=== PATIENT | female | born 1940 | race Caucasian/White ===

== ENCOUNTER 2016-05-11 23:43 | Observation (INO) | payer OTHER ==
[~2016-05-11] VITALS: Ht 152.4 cm; Wt 92.9 kg
[~2016-05-11 23:43] MED LIST: ANTIVERT25 MG PO; BENTYL20 MG PO; CEFDINIR300 MG PO; COLACE100 MG PO; DIABETIC MED; GLIPIZIDE5 MG PO; GLUCOPHAGE500 MG PO; HYCODAN SYRUP480 ML PO; HYDROCHLOROTH12.5 M3 PO; KEFLEX500 MG PO; KENALOG,ARISTOC80 GM TP; LANTUS 3 M100 UNITS1 SC; METFORMIN HCL500 M4 PO; MICROZIDE12.5 M1 PO; NORCO 5/3251 TABLET PO; PREDNISONE10 MG PO; PYRIDIUM100 MG PO; TESSALON200 MG PO; TRAMADOL HCL50 MG PO; VENTOLIN HFA18 GM IH; VICODIN,LORT1 TABLET PO; ZOFRAN4 MG PO
[2016-05-12 00:27] LABS: HEMATOCRIT 37.9 % (36.0-46.0); MCH 29.1 PG (29.0-34.0); MCHC 34.3 G/DL (30.0-36.0); MEAN PLAT.VOLUME 9.1 uM^3 (9.5-12.4); PLATELET COUNT 261 K/uL (156-360); RBC DIS.WIDTH-CV 13.2 % (11.8-14.6); RBC DIS.WIDTH-SD 40.3 % (39-53); RED BLOOD COUNT 4.46 M/uL (3.80-5.20); WHITE BLOOD COUNT 9.1 K/uL (4.1-10.2)
[2016-05-12 00:38] LABS: CHLORIDE 103 mEq/L (99-109); POTASSIUM 3.2 mEq/L (3.7-5.4); SODIUM 138 mEq/L (136-147)
[2016-05-12 00:39] LABS: GLUCOSE 148 mg/dL (70-99)
[2016-05-12 00:40] LABS: D-DIMER ELISA 0.54 mg/L FEU (< 0.57); PROTHROMBIN TIME 10.6 (9.2-11.2); PTT 24.7 (25-32)
[2016-05-12 00:41] LABS: ANION GAP 10 MEQ/L (2-14)
[2016-05-12 00:43] LABS: GFR ESTIMATE (CALCULATED) > 59 mL/min/
[2016-05-12 00:44] LABS: UREA NITROGEN (BUN) 9 mg/dL (9-23)
[2016-05-12 00:48] LABS: TROP-I INTERPRETATION NEGATIVE; TROPONIN-I < 0.01 ng/mL (0.0-0.30)
[2016-05-12] MEDS ORDERED: HYDROCHLOROTHIA25 MG PO (02:00)
[2016-05-12] MEDS ORDERED: LANTUS 3 M100 UNITS1 SC (02:01)
[2016-05-12] MEDS ORDERED: MYRBETRIQ50 MG PO (02:01)
[2016-05-12] MEDS ORDERED: LISINOPRIL10 MG PO (02:01)
[2016-05-12] MEDS ORDERED: METFORMIN HCL500 MG PO (02:01)
[2016-05-12 03:17] VITALS: BP 144/68
[2016-05-12 03:41] LABS: POINT-OF-CARE METER ID UU13113700
[2016-05-12 08:00] LABS: POINT-OF-CARE METER ID UU13113700
[2016-05-12 08:07] LABS: HEMATOCRIT 38.7 % (36.0-46.0); MCH 28.2 PG (29.0-34.0); MCHC 32.8 G/DL (30.0-36.0); MEAN PLAT.VOLUME 9.6 uM^3 (9.5-12.4); PLATELET COUNT 240 K/uL (156-360); RBC DIS.WIDTH-CV 13.3 % (11.8-14.6); RBC DIS.WIDTH-SD 41.5 % (39-53); WHITE BLOOD COUNT 7.8 K/uL (4.1-10.2)
[2016-05-12 08:23] LABS: ALKALINE PHOSPHATASE 63 IU/L (3-129); ANION GAP 5 MEQ/L (2-14); CHLORIDE 104 MEQ/L (99-109); GFR ESTIMATE (CALCULATED) > 59 mL/min/; GLUCOSE 160 mg/dL (70-99); SAMPLE HEMOLYSIS CHECK 0; SAMPLE ICTERIC CHECK 0; SAMPLE LIPEMIA CHECK 0; SODIUM 138 MEQ/L (136-147); TOTAL BILIRUBIN 0.3 MG/DL (0.0-1.0); TROP-I INTERPRETATION NEGATIVE; TROPONIN-I < 0.01 ng/mL (0.0-0.30); UREA NITROGEN (BUN) 9 mg/dL (9-23)
[2016-05-12 08:26] LABS: POTASSIUM 4.1 MEQ/L (3.7-5.4)
[2016-05-12 09:09] VITALS: BP 138/69
[2016-05-12 11:47] VITALS: BP 156/74
[2016-05-12 13:55] LABS: TROP-I INTERPRETATION NEGATIVE; TROPONIN-I < 0.01 ng/mL (0.0-0.30)
[2016-05-12] MEDS ORDERED: NITROSTAT0.4 MG SL (14:07)
[2016-05-12] MEDS ORDERED: ASPIR-LOW81 MG PO (14:07)
[2016-05-12 15:25] VITALS: BP 148/72
== END 2016-05-12 18:00 | disposition home or self-care (01) ==
LOC: EME 23:43 → EDOF 05-12 02:40 → 5WEST 05-12 03:18
PROVIDERS: Emergency Medicine; Hospitalist; Internal Medicine
DX: R07.89 Other chest pain (principal); E87.6 Hypokalemia; J44.9 Chronic obstructive pulmonary disease, unspecified; R00.2 Palpitations; M62.81 Muscle weakness (generalized); E11.9 Type 2 diabetes mellitus without complications; Z79.4 Long term (current) use of insulin; K21.9 Gastro-esophageal reflux disease without esophagitis; I10 Essential (primary) hypertension; E66.01 Morbid (severe) obesity due to excess calories; Z86.718 Personal history of other venous thrombosis and embolism; Z87.891 Personal history of nicotine dependence
CPT/HCPCS: 71020; 80048; 80053; 82948; 84484; 85027; 85379; 85610; 85730; 93005; 93306; 99202; 99281; 99285; G0378; J1644; J1815; J2270; J7030

== ENCOUNTER 2016-06-28 23:25 | Emergency (ER) | payer OTHER ==
[~2016-06-28] VITALS: Ht 152.4 cm; Wt 97.6 kg
[~2016-06-28 23:25] MED LIST changes: +ASPIR-LOW81 MG PO; +HYDROCHLOROTHIA25 MG PO; +LISINOPRIL10 MG PO; +METFORMIN HCL500 MG PO; +MYRBETRIQ50 MG PO; +NITROSTAT0.4 MG SL
[2016-06-29] MEDS ORDERED: ULTRAM50 MG PO (00:04)
[2016-06-29 00:26] VITALS: BP 165/84
== END 2016-06-29 00:26 | disposition home or self-care (01) ==
LOC: EME → EDBD 23:25 → EME 23:25
DX: M25.552 Pain in left hip (principal); E11.9 Type 2 diabetes mellitus without complications; I10 Essential (primary) hypertension; K21.9 Gastro-esophageal reflux disease without esophagitis; Z85.828 Personal history of other malignant neoplasm of skin
CPT/HCPCS: 99281; 99283

== ENCOUNTER 2016-08-08 22:38 | Emergency (ER) | payer OTHER ==
[~2016-08-08] VITALS: Ht 152.4 cm; Wt 90.7 kg
[~2016-08-08 22:38] MED LIST changes: +ULTRAM50 MG PO
[2016-08-08 23:40] LABS: HEMATOCRIT 39.6 % (36.0-46.0); MCH 28.4 PG (29.0-34.0); MCHC 32.8 G/DL (30.0-36.0); MCV 86.5 FL (83-99); MEAN PLAT.VOLUME 9.1 uM^3 (9.5-12.4); PLATELET COUNT 247 K/uL (156-360); RBC DIS.WIDTH-CV 13.2 % (11.8-14.6); RBC DIS.WIDTH-SD 41.2 % (39-53); RED BLOOD COUNT 4.58 M/uL (3.80-5.20); WHITE BLOOD COUNT 10.3 K/uL (4.1-10.2)
[2016-08-08 23:48] LABS: ADD MIUA? YES; BILIRUBIN NEGATIVE; BLOOD MODERATE; COLOR YELLOW ((YELLOW)); GLUCOSE (STRIP) >=500; KETONES NEGATIVE; LEUKOCYTES LARGE; NITRITE NEGATIVE; PROTEIN (STRIP) NEGATIVE; SPECIFIC GRAVITY 1.007 (1.000-1.030); UROBILINOGEN 0.2 MG/DL (0.2-1.0)
[2016-08-08 23:53] LABS: CHLORIDE 102 mEq/L (99-109); POTASSIUM 3.6 mEq/L (3.7-5.4); SODIUM 136 mEq/L (136-147)
[2016-08-08 23:55] LABS: GLUCOSE 218 mg/dL (70-99)
[2016-08-08 23:56] LABS: ANION GAP 10 MEQ/L (2-14)
[2016-08-08 23:59] LABS: GFR ESTIMATE (CALCULATED) > 59 mL/min/
[2016-08-09] LABS: UREA NITROGEN (BUN) 18 mg/dL (9-23)
[2016-08-09] MEDS ORDERED: KEFLEX500 MG PO (00:26)
[2016-08-09] MEDS ORDERED: PYRIDIUM100 MG PO (00:26)
[2016-08-09 00:28] LABS: EPITHELIAL CELLS RARE /HPF; RED BLOOD CELLS 15-20 /HPF (0-5); WHITE BLOOD CELLS TNTC /HPF (0-5)
[2016-08-09 00:29] LABS: BACTERIA 2+ /HPF; CASTS NONE SEEN /LPF; CRYSTALS NONE SEEN; MUCUS NONE SEEN /LPF; UCUL ADDED? YES
[2016-08-09 01:22] VITALS: BP 158/88
== END 2016-08-09 01:22 | disposition home or self-care (01) ==
LOC: EME 22:38
PROVIDERS: Emergency Medicine
DX: N30.01 Acute cystitis with hematuria (principal); M25.552 Pain in left hip; G89.29 Other chronic pain; I10 Essential (primary) hypertension; E11.9 Type 2 diabetes mellitus without complications; Z79.4 Long term (current) use of insulin; Z87.891 Personal history of nicotine dependence
CPT/HCPCS: 73502; 74176; 80048; 81003; 85027; 87077; 87086; 87186; 99281; 99284

== ENCOUNTER 2016-09-25 20:31 | Observation (INO) | payer OTHER ==
[~2016-09-25] VITALS: Ht 152.4 cm; Wt 89.0 kg
[2016-09-25 22:02] LABS: EOSINOPHIL (%) 2.8 % (0-5); EOSINOPHIL COUNT 0.3 K/uL (0-0.3); IMMATURE GRANULOCYTE (%) 0.4 % (0.0-0.7); IMMATURE GRANULOCYTE COUNT 0.1 K/uL; INSTRUMENT ABS NEUTROPHIL CT 7.8 K/uL; LYMPHOCYTE COUNT 2.3 K/uL (1.0-2.8); MCH 29.1 PG (29.0-34.0); MCHC 33.6 G/DL (30.0-36.0); MCV 86.7 FL (83-99); MEAN PLAT.VOLUME 9.6 uM^3 (9.5-12.4); MONOCYTE (%) 6.8 % (3-12); MONOCYTE COUNT 0.8 K/uL (0-0.8); NEUTROPHIL COUNT 7.8 K/uL (1.8-6.4); PLATELET COUNT 246 K/uL (156-360); RBC DIS.WIDTH-CV 13.1 % (11.8-14.6); RBC DIS.WIDTH-SD 41.1 % (39-53); WHITE BLOOD COUNT 11.2 K/uL (4.1-10.2)
[2016-09-25 22:13] LABS: CHLORIDE 107 mEq/L (99-109); POTASSIUM 3.6 mEq/L (3.7-5.4); SODIUM 142 mEq/L (136-147)
[2016-09-25 22:14] LABS: GLUCOSE 200 mg/dL (70-99)
[2016-09-25 22:16] LABS: ANION GAP 13 MEQ/L (2-14)
[2016-09-25 22:18] LABS: GFR ESTIMATE (CALCULATED) > 59 mL/min/
[2016-09-25 22:19] LABS: UREA NITROGEN (BUN) 19 mg/dL (9-23)
[2016-09-25 22:23] LABS: TROP-I INTERPRETATION NEGATIVE; TROPONIN-I < 0.01 ng/mL (0.0-0.30)
[2016-09-25] MEDS ORDERED: LO-DOSE ASPIRIN81 M2 PO (23:22)
[2016-09-26 01:10] VITALS: BP 175/73
[2016-09-26 01:55] VITALS: BP 152/82
[2016-09-26 07:16] LABS: ADD MIUA? YES; BILIRUBIN NEGATIVE; BLOOD NEGATIVE; COLOR YELLOW ((YELLOW)); GLUCOSE (STRIP) 150; KETONES NEGATIVE; LEUKOCYTES LARGE; NITRITE POSITIVE; PROTEIN (STRIP) NEGATIVE; SPECIFIC GRAVITY 1.028 (1.000-1.030); UROBILINOGEN 0.2 MG/DL (0.2-1.0)
[2016-09-26 07:20] LABS: HDL CHOLESTEROL 42 MG/DL (Desirable>=50); LDL CHOLESTEROL 49 mg/dL (Desirable<100); NON-HDL CHOLESTEROL 77 mg/dL (Desirable<160); TOTAL CHOLESTEROL 119 mg/dL (Desirable<200); TRIGLYCERIDES 138 MG/DL (Normal: <150)
[2016-09-26 07:27] LABS: TROP-I INTERPRETATION NEGATIVE; TROPONIN-I < 0.01 ng/mL (0.0-0.30)
[2016-09-26 07:33] LABS: BACTERIA 3+ /HPF; EPITHELIAL CELLS 1+ /HPF; MUCUS 3+ /LPF; RED BLOOD CELLS 15-20 /HPF (0-5); UCUL ADDED? YES; WHITE BLOOD CELLS TNTC /HPF (0-5)
[2016-09-26 08:06] LABS: Estimated Average Glucose 174 mg/dL (70-123); HEMOGLOBIN A1c (GLYCOHEMOGLOB) 7.7 % HGB (Below 5.7)
[2016-09-26 08:07] VITALS: BP 124/67
[2016-09-26 10:54] LABS: POINT-OF-CARE METER ID UU13113831
[2016-09-26 11:45] VITALS: BP 144/65
[2016-09-26 12:34] LABS: POINT-OF-CARE METER ID UU14162513
== END 2016-09-26 14:03 | disposition home or self-care (01) ==
LOC: EME → EDBD 20:31 → EDOF 23:01 → 5WEST 09-26 00:57
PROVIDERS: Emergency Medicine; Hospitalist; Student in an Organized Health Care Education/Training Program
DX: M79.602 Pain in left arm (principal); I10 Essential (primary) hypertension; E11.65 Type 2 diabetes mellitus with hyperglycemia; R20.0 Anesthesia of skin; Z91.81 History of falling; K21.9 Gastro-esophageal reflux disease without esophagitis; J44.9 Chronic obstructive pulmonary disease, unspecified; Z85.038 Personal history of other malignant neoplasm of large intestine; Z90.49 Acquired absence of other specified parts of digestive tract; Z87.891 Personal history of nicotine dependence; Z79.82 Long term (current) use of aspirin; Z79.4 Long term (current) use of insulin
CPT/HCPCS: 70450; 70551; 71010; 73030; 73130; 80048; 80061; 81003; 82948; 83036; 84484; 85025; 87077; 87086; 87186; 93005; 93880; 99281; 99285; G0378; J1644; J1815; J2270

== ENCOUNTER 2016-12-02 14:26 | Inpatient (IN) | payer OTHER ==
[~2016-12-02] VITALS: Ht 152.4 cm; Wt 86.2 kg
[~2016-12-02 14:26] MED LIST changes: +LO-DOSE ASPIRIN81 M2 PO
[2016-12-02 15:04] LABS: EOSINOPHIL (%) 0.4 % (0-5); IMMATURE GRANULOCYTE (%) 0.5 % (0.0-0.7); IMMATURE GRANULOCYTE COUNT 0.1 K/uL; INSTRUMENT ABS NEUTROPHIL CT 9.4 K/uL; LYMPHOCYTE COUNT 1.2 K/uL (1.0-2.8); MCH 29.1 PG (29.0-34.0); MCHC 33.9 G/DL (30.0-36.0); MCV 85.8 FL (83-99); MEAN PLAT.VOLUME 9.4 uM^3 (9.5-12.4); MONOCYTE (%) 3.7 % (3-12); MONOCYTE COUNT 0.4 K/uL (0-0.8); NEUTROPHIL (%) 84.4 % (45-76); NEUTROPHIL COUNT 9.4 K/uL (1.8-6.4); PLATELET COUNT 252 K/uL (156-360); RBC DIS.WIDTH-CV 12.9 % (11.8-14.6); RBC DIS.WIDTH-SD 40.3 % (39-53); RED BLOOD COUNT 4.78 M/uL (3.80-5.20); WHITE BLOOD COUNT 11.2 K/uL (4.1-10.2)
[2016-12-02 15:12] LABS: CHLORIDE 101 mEq/L (99-109); POTASSIUM 3.5 mEq/L (3.7-5.4); SODIUM 139 mEq/L (136-147)
[2016-12-02 15:14] LABS: GLUCOSE 229 mg/dL (70-99)
[2016-12-02 15:15] LABS: ANION GAP 15 MEQ/L (2-14)
[2016-12-02 15:16] LABS: TOTAL BILIRUBIN 0.4 mg/dL (0.0-1.0)
[2016-12-02 15:17] LABS: ALKALINE PHOSPHATASE 59 IU/L (3-129)
[2016-12-02 15:18] LABS: GFR ESTIMATE (CALCULATED) > 59 mL/min/
[2016-12-02 15:19] LABS: UREA NITROGEN (BUN) 20 mg/dL (9-23)
[2016-12-02 15:25] LABS: TROP-I INTERPRETATION NEGATIVE; TROPONIN-I < 0.01 ng/mL (0.0-0.30)
[2016-12-02 15:31] LABS: POINT-OF-CARE METER ID UU13113702
[2016-12-02] MEDS ORDERED: BACLOFEN20 MG PO (16:36)
[2016-12-02] MEDS ORDERED: GABAPENTIN100 MG PO (16:36)
[2016-12-02 16:59] LABS: ADD MIUA? YES; BILIRUBIN NEGATIVE; BLOOD NEGATIVE; COLOR YELLOW ((YELLOW)); GLUCOSE (STRIP) >=500; KETONES NEGATIVE; LEUKOCYTES SMALL; NITRITE NEGATIVE; PROTEIN (STRIP) 100; UROBILINOGEN 0.2 MG/DL (0.2-1.0)
[2016-12-02 17:08] LABS: BACTERIA RARE /HPF; BUDDING YEAST 1+; EPITHELIAL CELLS RARE /HPF; MUCUS TRACE /LPF; RED BLOOD CELLS 0-5 /HPF (0-5); UCUL ADDED? YES; WHITE BLOOD CELLS 20-30 /HPF (0-5)
[2016-12-02 17:11] LABS: AMPHETAMINE NEGATIVE (500 ng/mL); BARBITURATES NEGATIVE (200 ng/mL); BENZODIAZEPINES NEGATIVE (150 ng/mL); COCAINE NEGATIVE (150 ng/mL); INTERNAL CONTROLS VALID? YES; METHADONE NEGATIVE (200 ng/mL); METHAMPHETAMINE NEGATIVE (500 ng/mL); OPIATES (MORPHINE) NEGATIVE (100 ng/mL); OXYCODONE NEGATIVE (100 ng/mL); PHENCYCLIDINE NEGATIVE (25 ng/mL); PROPOXYPHENE NEGATIVE (300 ng/mL); THC CANNABINOIDS NEGATIVE (50 ng/mL); TRICYCLIC ANTIDEPRESSANTS NEGATIVE (300 ng/mL)
[2016-12-02 18:43] LABS: Estimated Average Glucose 183 mg/dL (70-123)
[2016-12-02 18:53] LABS: HDL CHOLESTEROL 52 MG/DL (Desirable>=50); LDL CHOLESTEROL 97 mg/dL (Desirable<100); NON-HDL CHOLESTEROL 120 mg/dL (Desirable<160); TOTAL CHOLESTEROL 172 mg/dL (Desirable<200); TRIGLYCERIDES 115 MG/DL (Normal: <150)
[2016-12-02 20:38] VITALS: BP 159/72
[2016-12-02 21:01] LABS: POINT-OF-CARE METER ID UU13113700
[2016-12-02 23:52] VITALS: BP 134/63
[2016-12-03 04:00] VITALS: BP 156/72
[2016-12-03 06:23] LABS: HEMATOCRIT 40.1 % (36.0-46.0); MCH 28.5 PG (29.0-34.0); MCHC 32.2 G/DL (30.0-36.0); MCV 88.5 FL (83-99); MEAN PLAT.VOLUME 9.4 uM^3 (9.5-12.4); PLATELET COUNT 264 K/uL (156-360); RBC DIS.WIDTH-CV 13.2 % (11.8-14.6); RBC DIS.WIDTH-SD 42.6 % (39-53); RED BLOOD COUNT 4.53 M/uL (3.80-5.20); WHITE BLOOD COUNT 12.5 K/uL (4.1-10.2)
[2016-12-03 07:52] LABS: POINT-OF-CARE METER ID UU13113700
[2016-12-03 11:09] VITALS: BP 140/60
[2016-12-03 12:14] LABS: POINT-OF-CARE METER ID UU13113700
[2016-12-03 15:41] VITALS: BP 138/74
[2016-12-03 17:48] LABS: POINT-OF-CARE METER ID UU13113700
[2016-12-03 20:00] VITALS: BP 106/77
[2016-12-03 21:28] LABS: POINT-OF-CARE METER ID UU13113831
[2016-12-03 23:08] VITALS: BP 132/62
[2016-12-04 03:26] VITALS: BP 125/61
[2016-12-04 06:31] LABS: POINT-OF-CARE METER ID UU14162513
[2016-12-04 08:20] VITALS: BP 140/65
[2016-12-04 09:14] LABS: HEMATOCRIT 41.7 % (36.0-46.0); MCH 28.7 PG (29.0-34.0); MCHC 31.9 G/DL (30.0-36.0); MCV 89.9 FL (83-99); MEAN PLAT.VOLUME 9.3 uM^3 (9.5-12.4); PLATELET COUNT 257 K/uL (156-360); RBC DIS.WIDTH-CV 13.3 % (11.8-14.6); RBC DIS.WIDTH-SD 44.1 % (39-53); RED BLOOD COUNT 4.64 M/uL (3.80-5.20); WHITE BLOOD COUNT 9.2 K/uL (4.1-10.2)
[2016-12-04 09:32] LABS: ANION GAP 7 MEQ/L (2-14); CHLORIDE 107 MEQ/L (99-109); POTASSIUM 4.2 MEQ/L (3.7-5.4); SAMPLE HEMOLYSIS CHECK 0; SAMPLE ICTERIC CHECK 0; SAMPLE LIPEMIA CHECK 0; SODIUM 143 MEQ/L (136-147)
[2016-12-04 09:38] LABS: GFR ESTIMATE (CALCULATED) > 59 mL/min/; UREA NITROGEN (BUN) 14 mg/dL (9-23)
[2016-12-04 09:39] LABS: GLUCOSE 117 mg/dL (70-99)
[2016-12-04 11:07] VITALS: BP 177/80
[2016-12-04 12:04] LABS: POINT-OF-CARE METER ID UU14162513
[2016-12-04 15:13] VITALS: BP 157/78
[2016-12-04 17:26] LABS: POINT-OF-CARE METER ID UU14162513
[2016-12-04 19:00] VITALS: BP 136/82
[2016-12-05 00:05] VITALS: BP 132/58
[2016-12-05 04:30] VITALS: BP 129/58
[2016-12-05 07:19] VITALS: BP 140/68
[2016-12-05] MEDS ORDERED: CEFTIN500 MG PO (09:22)
== END 2016-12-05 10:56 | disposition home or self-care (01) | DRG 689 ==
LOC: EME 14:26 → ENRESERV 17:43 → 5WEST 17:50 → EDOF 17:50 → ENRESERV 18:32 → 5WEST 20:20 → ENRESERV 12-03 08:54 → CANRESERV 12-03 08:54 → 5WEST 12-05 10:56
PROVIDERS: Emergency Medicine; Hospitalist; Nurse Practitioner Adult Health
DX: N39.0 Urinary tract infection, site not specified (principal); G93.40 Encephalopathy, unspecified; I08.1 Rheumatic disorders of both mitral and tricuspid valves; E11.65 Type 2 diabetes mellitus with hyperglycemia; K21.9 Gastro-esophageal reflux disease without esophagitis; J44.9 Chronic obstructive pulmonary disease, unspecified; I10 Essential (primary) hypertension; M19.90 Unspecified osteoarthritis, unspecified site; G89.29 Other chronic pain; Z87.891 Personal history of nicotine dependence; R26.81 Unsteadiness on feet; K58.9 Irritable bowel syndrome, unspecified; Z90.49 Acquired absence of other specified parts of digestive tract; Z86.73 Personal history of transient ischemic attack (TIA), and cerebral infarction without residual deficits; Z87.440 Personal history of urinary (tract) infections; Z79.84 Long term (current) use of oral hypoglycemic drugs
CPT/HCPCS: 70450; 70551; 74177; 80048; 80053; 80061; 81003; 82948; 83036; 84484; 85025; 85027; 87077; 87086; 87186; 90686; 93005; 93306; 99202; 99281; 99285; G0378; J0696; J2060; J2405; J3480; J7030; J7040; J7050

== ENCOUNTER 2017-07-01 22:31 | Inpatient (IN) | payer OTHER ==
[~2017-07-01] VITALS: Ht 152.4 cm; Wt 87.6 kg
[~2017-07-01 22:31] MED LIST changes: +BACLOFEN20 MG PO; +CEFTIN500 MG PO; +GABAPENTIN100 MG PO
[2017-07-01 23:32] LABS: HEMATOCRIT 40.8 % (36.0-46.0); MCH 29.8 PG (29.0-34.0); MCHC 34.3 G/DL (30.0-36.0); MCV 86.8 FL (83-99); PLATELET COUNT 236 K/uL (156-360); WHITE BLOOD COUNT 12.3 K/uL (4.1-10.2)
[2017-07-01 23:44] LABS: ALBUMIN 4.1 g/dL (3.2-4.8); CHLORIDE 98 mEq/L (99-109); POTASSIUM 3.8 mEq/L (3.7-5.4); SODIUM 138 mEq/L (136-147)
[2017-07-01 23:46] LABS: GLUCOSE 268 mg/dL (70-99); TOTAL PROTEIN 7.2 g/dL (6.4-8.3)
[2017-07-01 23:48] LABS: TOTAL BILIRUBIN 0.6 mg/dL (0.0-1.0)
[2017-07-01 23:50] LABS: ALKALINE PHOSPHATASE 64 IU/L (3-129); CREATININE 0.8 mg/dL (0.6-1.3); GFR ESTIMATE (CALCULATED) > 59 mL/min/
[2017-07-01 23:51] LABS: AST (GOT) 16 IU/L (2-34); UREA NITROGEN (BUN) 13 mg/dL (9-23)
[2017-07-01 23:53] LABS: ALT (GPT) 19 IU/L (3-49); LIPASE 183 U/L (1.0-51.0)
[2017-07-02 01:18] LABS: TROP-I INTERPRETATION NEGATIVE; TROPONIN-I < 0.01 ng/mL (0.0-0.30)
[2017-07-02 03:14] LABS: APPEARANCE CLEAR ((CLEAR)); BILIRUBIN NEGATIVE; BLOOD SMALL; COLOR YELLOW ((YELLOW)); GLUCOSE (STRIP) >=500; KETONES 5; LEUKOCYTES NEGATIVE; NITRITE NEGATIVE; PROTEIN (STRIP) 30; SPECIFIC GRAVITY 1.032 (1.000-1.030); UROBILINOGEN 0.2 MG/DL (0.2-1.0)
[2017-07-02 03:21] LABS: BACTERIA NONE SEEN /HPF; EPITHELIAL CELLS RARE /HPF; MUCUS TRACE /LPF; RED BLOOD CELLS 0-5 /HPF (0-5); UCUL ADDED? YES
[2017-07-02 06:09] LABS: BASOPHIL (%) 0.4 % (0-1); EOSINOPHIL (%) 5.8 % (0-5); EOSINOPHIL COUNT 0.6 K/uL (0-0.3); HEMATOCRIT 39.1 % (36.0-46.0); HEMOGLOBIN 13.3 G/DL (11.9-15.5); IMMATURE GRANULOCYTE (%) 0.3 % (0.0-0.7); LYMPHOCYTE (%) 20.8 % (15-42); LYMPHOCYTE COUNT 2.3 K/uL (1.0-2.8); MCH 29.6 PG (29.0-34.0); MCV 86.9 FL (83-99); MONOCYTE (%) 7.3 % (3-12); MONOCYTE COUNT 0.8 K/uL (0-0.8); NEUTROPHIL (%) 65.4 % (45-76); NEUTROPHIL COUNT 7.3 K/uL (1.8-6.4); PLATELET COUNT 231 K/uL (156-360); RBC DIS.WIDTH-CV 13.1 % (11.8-14.6); RBC DIS.WIDTH-SD 41.2 % (39-53); WHITE BLOOD COUNT 11.1 K/uL (4.1-10.2)
[2017-07-02 06:26] LABS: CHLORIDE 101 mEq/L (99-109); POTASSIUM 3.5 mEq/L (3.7-5.4); SODIUM 139 mEq/L (136-147)
[2017-07-02 06:28] LABS: GLUCOSE 232 mg/dL (70-99)
[2017-07-02 06:32] LABS: CREATININE 0.7 mg/dL (0.6-1.3); GFR ESTIMATE (CALCULATED) > 59 mL/min/
[2017-07-02 06:33] LABS: UREA NITROGEN (BUN) 12 mg/dL (9-23)
[2017-07-02 07:49] VITALS: BP 182/84
[2017-07-02 11:24] VITALS: BP 113/55
[2017-07-02 15:54] VITALS: BP 159/75
[2017-07-02 19:17] VITALS: BP 138/66
[2017-07-02 23:31] VITALS: BP 123/55
[2017-07-03 04:19] VITALS: BP 132/57
[2017-07-03 06:22] LABS: HEMATOCRIT 41.7 % (36.0-46.0); HEMOGLOBIN 13.2 G/DL (11.9-15.5); MCH 28.1 PG (29.0-34.0); MCHC 31.7 G/DL (30.0-36.0); MCV 88.9 FL (83-99); PLATELET COUNT 280 K/uL (156-360); RBC DIS.WIDTH-CV 13.2 % (11.8-14.6); RBC DIS.WIDTH-SD 43.1 % (39-53); RED BLOOD COUNT 4.69 M/uL (3.80-5.20); WHITE BLOOD COUNT 14.4 K/uL (4.1-10.2)
[2017-07-03 06:52] LABS: CHLORIDE 105 MEQ/L (99-109); CREATININE 0.7 MG/DL (0.6-1.3); GFR ESTIMATE (CALCULATED) > 59 mL/min/; POTASSIUM 3.7 MEQ/L (3.7-5.4); SODIUM 142 MEQ/L (136-147); UREA NITROGEN (BUN) 14 mg/dL (9-23)
[2017-07-03 06:55] LABS: GLUCOSE 90 mg/dL (70-99)
[2017-07-03 07:41] VITALS: BP 153/72
[2017-07-03] MEDS ORDERED: PROTONIX40 MG PO ×2 (13:04→13:41)
== END 2017-07-03 14:39 | disposition home or self-care (01) | DRG 384 ==
LOC: EME 22:31 → EDOF 07-02 04:07 → ENRESERV 07-02 04:09 → 4SOUTH 07-02 07:09
PROVIDERS: Family Medicine; Hospitalist; Internal Medicine
PROC: 0DB68ZX Excision of Stomach, Via Natural or Artificial Opening Endoscopic, Diagnostic (ICD-10-PCS; principal; 2017-07-02)
DX: K25.9 Gastric ulcer, unspecified as acute or chronic, without hemorrhage or perforation (principal); K26.9 Duodenal ulcer, unspecified as acute or chronic, without hemorrhage or perforation; K29.70 Gastritis, unspecified, without bleeding; E87.6 Hypokalemia; E86.0 Dehydration; R19.7 Diarrhea, unspecified; K58.9 Irritable bowel syndrome, unspecified; E11.9 Type 2 diabetes mellitus without complications; R74.8 Abnormal levels of other serum enzymes; I10 Essential (primary) hypertension; J44.9 Chronic obstructive pulmonary disease, unspecified; K21.9 Gastro-esophageal reflux disease without esophagitis; M25.559 Pain in unspecified hip; E78.5 Hyperlipidemia, unspecified; F41.9 Anxiety disorder, unspecified; E66.9 Obesity, unspecified; Z68.37 Body mass index [BMI] 37.0-37.9, adult; Z79.4 Long term (current) use of insulin; Z85.038 Personal history of other malignant neoplasm of large intestine; Z80.3 Family history of malignant neoplasm of breast; Z87.11 Personal history of peptic ulcer disease; Z87.891 Personal history of nicotine dependence; Z90.49 Acquired absence of other specified parts of digestive tract; Z86.73 Personal history of transient ischemic attack (TIA), and cerebral infarction without residual deficits
CPT/HCPCS: 74177; 76705; 80048; 80053; 81003; 82948; 83605; 83690; 83735; 84484; 85025; 85027; 87086; 87106; 88305; 88342 TC; 99281; 99285; C9113; J1170; J1815; J2405; J3480; J7040

== ENCOUNTER 2017-08-10 15:42 | Emergency (ER) | payer OTHER ==
[~2017-08-10] VITALS: Ht 152.4 cm; Wt 83.6 kg
[~2017-08-10 15:42] MED LIST changes: +PROTONIX40 MG PO
[2017-08-10] MEDS ORDERED: ULTRAM50 MG PO (17:54)
[2017-08-10] MEDS ORDERED: KEFLEX500 MG PO (17:54)
[2017-08-10 18:11] VITALS: BP 130/78
== END 2017-08-10 18:12 | disposition home or self-care (01) ==
LOC: EME 15:42
DX: M79.676 Pain in unspecified toe(s) (principal); I10 Essential (primary) hypertension; E11.9 Type 2 diabetes mellitus without complications; Z79.4 Long term (current) use of insulin; Z85.828 Personal history of other malignant neoplasm of skin; Z87.891 Personal history of nicotine dependence
CPT/HCPCS: 93926; 99281; 99284